=== PATIENT | male | born 1970 | race Caucasian/White ===

== ENCOUNTER 2016-10-22 06:46 | Observation (INO) | payer OTHER ==
--- NOTE | 2016-10-21 14:21 | PDHPUP ---
History & Physical Update H&P update statement: This history and physical update is based on an assessment of the patient which was completed after admission or registration (within 24 hours), but prior to the surgery/procedure.
[~2016-10-22 06:46] MED LIST: DEXAMETHASONE 10 MG/ML VIAL IVP ONE; ceFAZolin 2 GM/DEXTROSE 100 ML IV ONE
[2016-10-22] MEDS ORDERED: BUPIVACAINE 0.25% 30 ML SDV ONE (06:56)
[2016-10-22] MEDS ORDERED: ceFAZolin 2 GM/DEXTROSE 100 ML IV ONE (07:00)
[2016-10-22] MEDS ORDERED: DEXAMETHASONE 10 MG/ML VIAL IVP ONE (07:00)
[2016-10-22] MEDS ORDERED: PROPOFOL 200 MG/20 ML VIAL ONE ×2 (07:09→08:44)
[2016-10-22] MEDS ORDERED: ROCURONIUM 50 MG/5 ML VIAL ONE ×2 (07:09→08:45)
[2016-10-22] MEDS ORDERED: fentaNYL 100 MCG/2 ML INJ ONE ×3 (07:09→08:44)
[2016-10-22] MEDS ORDERED: SUCCINYLCHOLINE CHLORIDE*ANESTHESIA ONLY*200 MG/10 ML SYR IVP ONE (07:09)
[2016-10-22] MEDS ORDERED: LIDOCAINE 2% 5 ML SDV ONE (07:09)
--- NOTE | 2016-10-22 07:14 | PDANEPAE ---
ANE History of Present Illness Patient presents for UPPP ANE Past Medical History - Cardiovascular History Hx Hypertension: Yes Hx Arrhythmias: No Hx Chest Pain: No Hx Coronary Artery / Peripheral Vascular Disease: No Hx CHF / Valvular Disease: No Hx Palpitations: No - Pulmonary History Hx COPD: No Hx Asthma/Reactive Airway Disease: No Hx Recent Upper Respiratory Infection: No Hx Oxygen in Use at Home: No Hx Sleep Apnea: Yes Sleep Apnea Screening Result - Last Documented: Positive - Neurologic History Hx Cerebrovascular Accident: No Hx Seizures: No Hx Dementia: No - Endocrine History Hx Diabetes: No - Renal History Hx Renal Disorders: No - Liver History Hx Hepatic Disorders: No - Neurological & Psychiatric Hx Hx Neurological and Psychiatric Disorders: No - Cancer History Hx Cancer: No - Congenital Disorder History Hx Congenital Disorders: No - GI History GERD: moderate Hx Gastrointestinal Disorders: No Gastrointestinal History Comment: POLYP REMOVED - Other Health History Other Health History: NONE - Chronic Pain History Chronic Pain: Yes (LOWER BACK) - Surgical History Prior Surgeries: RIGHT TIBIA FX ANE Review of Systems Review of Systems: - Exercise capacity Exercise capacity: >=4 METS METS (RN): 4 METS ANE Patient History - Allergies Allergies/Adverse Reactions: No Allergies [NKDA] Allergy (Mild, Verified 02/09/09 18:27) - Home Medications Home medications: home medication list seen and reviewed Home Medications: Acetaminophen [Tylenol 325mg (*)] 325 mg PO DAILY PRN 10/15/16 [Last Taken 10/15] Ibuprofen [Motrin (*)] 200 mg PO DAILY PRN 10/15/16 [Last Taken 10/15/16] - Anes Hx Anes Hx: no prior problems - Smoking Hx Smoking Status: Never smoked - Family Anes Hx Family Hx Anesthesia Complications: NONE ANE Labs/Vital Signs - Vital Signs Height: 185.42 cm Weight: 230 kg ANE Physical Exam - Airway Neck exam: FROM Mallampati Score: Class 3 Mouth exam: small mouth opening - Pulmonary Pulmonary: no respiratory distress - Cardiovascular Cardiovascular: regular rate and rhythym - ASA Status ASA Status: II, III ANE Anesthesia Plan Anesthesia Plan: general endotracheal anesthesia (rba discussed)
[2016-10-22] MEDS ORDERED: LIDOCAINE 1% 2 ML INJ ONE (07:22)
[2016-10-22] MEDS ORDERED: LIDOCAINE 1% 2 ML INJ ID PRN (07:23)
[2016-10-22] MEDS ORDERED: LR 1,000 ML IV ONE (07:23)
[2016-10-22] MEDS ORDERED: ATROPINE SULFATE 1 MG/ML VIAL ONE (07:54)
[2016-10-22] MEDS ORDERED: NALOXONE HCL 0.4 MG/ML INJ IVP PRN ×2 (07:57)
[2016-10-22] MEDS ORDERED: LABETALOL HCL 50 MG/10 ML SYR IVP PRN (07:57)
[2016-10-22] MEDS ORDERED: ONDANSETRON 4 MG/2 ML VIAL IVP PRN ×2 (07:57→09:10)
[2016-10-22] MEDS ORDERED: fentaNYL 100 MCG/2 ML INJ IVP PRN (07:57)
[2016-10-22] MEDS ORDERED: LR 500 ML IV PRN (07:57)
[2016-10-22] MEDS ORDERED: DEXAMETHASONE 4 MG/ML VIAL ONE (08:35)
[2016-10-22] MEDS ORDERED: ONDANSETRON 4 MG/2 ML VIAL ONE (08:35)
[2016-10-22] MEDS ORDERED: SUGAMMADEX SODIUM 200 MG/2 ML VIAL IVP ONE (08:36)
--- NOTE | 2016-10-22 09:10 | POSTOPPROG ---
Post Op Note Date of Operation: 10/22/16 Surgeon: Prakash Redd Pre-op Diagnosis: NIK, tonsil hyperplasia, snoring Post-op Diagnosis: same Indication: Severe sleep apnea, snoring, large tonsils Procedure: Tonsillectomy and UPPP Findings: Large tonsils and very large uvula, significant redundant pharyngeal tissue Inf/Abcess present in the surg proc area at time of surgery?: No Depth: Deep Incisional (Fascial) EBL: Minimal Complications: none Specimen(s): tonsils and uvula
--- NOTE | 2016-10-22 09:19 | POSTANESTH ---
Post Anesthetic Evaluation Cardiovascular Status: Normal, Stable Respiratory Status: Normal, Stable Level of Consciousness/Mental Status: Can Participate in Eval Pain Control: Adequate, Prn Tx Ordered Nausea/Vomiting Control: Adequate, Prn Tx Ordered Complications Possibly Related to Anesthesia: None Noted
--- NOTE | 2016-10-22 10:04 | GOP ---
[f rep st] OPERATIVE REPORT DATE OF OPERATION: 10/22/2016 SURGEON: Prakash Redd MD ANESTHESIA: General. PREOPERATIVE DIAGNOSIS: 1. Obstructive sleep apnea syndrome. 2. Tonsil hyperplasia. 3. Snoring. POSTOPERATIVE DIAGNOSIS: 1. Obstructive sleep apnea syndrome. 2. Tonsil hyperplasia. 3. Snoring. PROCEDURE PERFORMED: 1. Tonsillectomy. 2. Uvulopalatopharyngoplasty. FINDINGS: Large tonsils, long uvula and palate. SPECIMENS: Tonsils and palate tissue. ESTIMATED BLOOD LOSS: Less than 50 mL. INDICATIONS: The patient is a 46-year-old male with severe obstructive sleep apnea syndrome. He has been unable to tolerate CPAP. He has large tonsils and a very long palate and large uvula and we elected, after long discussion, to perform surgery in hopes of improving his sleep apnea and possibly allowing him to tolerate CPAP. More recently, his symptoms have gotten worse with the patient sleepwalking and feeling like he has trouble staying awake while driving. DESCRIPTION OF PROCEDURE: Patient was taken to the OR and positively identified , placed on monitors and general anesthesia was induced. The table was then turned 90 degrees. He was placed in supine position with a shoulder roll and head drape. A Markus mouth gag was used to visualize the oropharynx. He was placed in suspension. The peritonsillar tissues were then infiltrated on either side with 3 cc of 0.25% Marcaine with 1:200,000 epinephrine. I grasped the large uvula and pulled it anteriorly to see the crease where the uvula intersected with the border of the soft palate musculature and this was marked as a point for the UPPP. The tonsils were then removed with a combination of the Coblation wand and the electrocautery. Following tonsillectomy, the gag was released for several minutes and reopened, there was a little bit of oozing from the left inferior tonsillar fossa along the edge of the base of tongue, which was controlled with electrocautery. At this point, the uvula was again pulled forward. I then used the monopolar electrocautery to excise the uvula and the leading edge of the redundant anterior tonsillar pillar tissue bilaterally, preserving the posterior uvula mucosa to ease closure. I noted that the posterior tonsillar pillars were medially connected to the base of the uvula causing significant narrowing of the opening into the nasopharynx. I made a small cut in this muscle line bilaterally and this allowed me to then sew this muscle laterally, opening up the nasopharynx from the oral cavity. I then used chromic in interrupted fashion to reapproximate the mucosa on the palatal and nasal surface of the soft palate. I had preserved some of the mucosa on the posterior aspect of the uvula and brought that forward to sew to the midline. At this point, the gag was released for several minutes and reopened. There were no signs of any further bleeding. A further 3 cc of local anesthetic was infiltrated into the surgical area. The patient was then turned back over to Anesthesia, having tolerated the procedure well. COMPLICATIONS: None. /[id number]/MODL MTDD
[2016-10-22] MEDS: HYDROCOD/APAP 7.5/325 IN 15ML UDCUP PO PRN ×3 (10:32→21:15)
[2016-10-22] MEDS: D5W LR 1,000 ML IV SCH (11:18)
[2016-10-22] MEDS: ceFAZolin 2 GM/DEXTROSE 100 ML IV SCH ×2 (13:38→21:15)
[2016-10-22] MEDS ORDERED: LISINOPRIL 10 MG TAB PO ONE (15:37)
--- NOTE | 2016-10-22 16:26 | GCON ---
[f rep st] CONSULTATION DATE OF CONSULTATION: 10/22/2016 REASON FOR CONSULTATION: I was asked by Dr. Redd to see the patient in regard to his hypertensi on postoperatively. HISTORY OF PRESENT ILLNESS: This is a 46-year-old man who has severe sleep apnea, is now status post tonsillectomy and uvulopalatoplasty who has had persistently high blood pressures postoperatively. There were no complications with the procedure itself. He has had readings as high as 160/117 while he was sleeping. This is after being medicated and was not complaining of any significant pain. He tells me he has a history of borderline hypertension previously, at one point had been prescribed a m edication by his primary care physician. He checks his blood pressures at home routinely and usually sees around 140/90 at home. He does not have any significant personal or family history of vascular disease. PAST MEDICAL/SURGICAL HISTORY: 1. Obstructive sleep apnea. 2. Tibia fracture status post open reduction and internal fixation. MEDICATIONS: Please see medication reconciliation. ALLERGIES: No known drug allergies. SOCIAL HISTORY: He is accompanied by his . He occasionally drinks alcohol and does not smoke. FAMILY HISTORY: Significant family history of colon cancer. He gets colonoscopies every 2-3 years. REVIEW OF SYSTEMS: A 10-point review of systems is conducted and is negative except per HPI. PHYSICAL EXAMINATION: VITAL SIGNS: Last blood pressure is 139/93, heart rate 88, respiration rate 1 8, saturating 95% on 2 L, temperature 36.3. GENERAL: The patient is a pleasant man who appears some what uncomfortable sitting in bed. HEENT: Shows him to be normocephalic, atraumatic. CARDIOVASCULA R: Regular rate and rhythm. There are no murmurs, rubs, or gallops. PULMONARY: Lungs clear to aus cultation bilaterally. ABDOMEN: Soft, nontender, nondistended. SKIN: Shows no rash. : No Fole y. NEUROLOGIC: Exam shows him to be alert and oriented x3. He is moving all extremities. PSYCHIAT DARCY: Exam shows normal mood and affect. LABORATORY: I reviewed his previous labs. He has had a white count as high as 9.6 in 2011. I reviewed his operative note which shows an uncomplicated tonsillectomy and uvulopalatoplasty. I discussed this case with MICHAEL Wilson for Dr. Redd. IMPRESSION AND PLAN: A 46-year-old man status post tonsillectomy and uvulopalatoplasty for sleep vp genetic ea with hypertension. 1. Hypertension: I suspect there is probably a component of essential hypertension here. Difficult to assess this while he is an inpatient. I think it is reasonable to give him a small dose of lisin opril today to lower his diastolic blood pressures and see how he responds. I will give him a dose o f 10 mg and follow. I have not scheduled this for tomorrow, would like to see what his blood pressur e is tomorrow before scheduling this. If it is still elevated, I think he should be given a prescrip tion for lisinopril to follow up with his primary care physician, Dr. Serna. We will check a set of electrolytes and kidney function today. He is also complaining of some leg cramps. 2. Obstructive sleep apnea: This was severe. Hopefully it will be helped by this procedure. 3. Leg cramps: Check electrolytes as above. Thank you for involving Hospital Medicine in the care of this patient. We will follow with you. /[id number]/MODL
[2016-10-22 17:31] LABS: ANION GAP 12 mEq/L (8-16); CALCIUM 9.1 mg/dL (8.5-10.4); CARBON DIOXIDE 21 mEq/l (22-31); CHLORIDE 105 mEq/L (97-110); GLOMERULAR FILTRATION RATE > 60; GLUCOSE 120 mg/dL (70-100); POTASSIUM 4.5 mEq/L (3.5-5.2); SODIUM 138 mEq/L (134-144)
--- NOTE | 2016-10-22 19:22 | SOAPPROG ---
SOAP Progress Note Assessment/Plan: Assessment: Pt eating remarkably well and pain under adequate control. Appreciate the help of the hospitalist service. His HTN is controlled with the 10mg lisinopril ordered by the hospitalist. Plan: Anticipate discharge tomorrow. 10/22/16 19:19 Subjective: Pt eating pasta. No complaints. Objective: Vital Signs Temp Pulse Resp BP Pulse Ox 36.3 C 88 18 139/93 H 95 10/22/16 14:57 10/22/16 14:57 10/22/16 14:57 10/22/16 14:57 10/22/16 14:57 Laboratory Results 10/22/16 16:36 10/21/16 10/22/16 10/23/16 05:59 05:59 05:59 Intake Total 700 Output Total 20 Balance 680 Pt eating and appears comfortable. No bleeding. - Pending Discharge Pending Discharge Within 24 Hours: Yes Pending Discharge Date: 10/23/16 Pending Discharge Time: 11:00 ICD10 Worksheet Patient Problems: Problems Problem Status Onset Sleep apnea syndrome Acute Snoring Acute Tonsillar hypertrophy Acute - ICD10 Problem Qualifiers (1) Sleep apnea syndrome Qualifiers: Sleep apnea type: obstructive Qualified Code(s): G47.33 - Obstructive sleep apnea (adult) (pediatric) (2) Tonsillar hypertrophy (3) Snoring
[2016-10-23] MEDS: HYDROCOD/APAP 7.5/325 IN 15ML UDCUP PO PRN ×3 (01:17→09:24)
[2016-10-23] MEDS: D5W LR 1,000 ML IV SCH (01:17)
[2016-10-23] MEDS: ceFAZolin 2 GM/DEXTROSE 100 ML IV SCH (05:27)
[2016-10-23 07:10] VITALS: BP 125/73; PULSE 63; RESP 16; TEMP 98.1; O2SAT 97
--- NOTE | 2016-10-23 12:23 | GDS ---
[f rep st] DISCHARGE SUMMARY HISTORY OF PRESENT ILLNESS: This is a 46-year-old male with a history of recently diagnosed obstruct krunal sleep apnea. The patient sleeps poorly, and has been told that he snores as well. The patient p resented to the hospital on October 22, 2016 for a tonsillectomy and uvulopalatopharyngoplasty. HOSPITAL COURSE: Patient underwent surgery on 10/22/2016, and was subsequently admitted to the [facility] for observation overnight. Patient was discharged home on 10/23/2016 in stable condition. DISCHARGE CONDITION: Stable. DISCHARGE INSTRUCTIONS: Patient was instructed to follow up with our office in 2 weeks for further e valuation. /[id number]/MODL
--- NOTE | 2016-10-23 12:58 | HOSPPROG ---
Hospitalist Progress Note Assessment/Plan: 46y male post op HTN. First encounter, chart reviewed. #HTN controlled on lisinopril #Pain stable #Dispo per ENT, home Subjective: Feeling ok. Ready to go. Objective: Vital Signs Temp Pulse Resp BP Pulse Ox 36.7 C 63 16 125/73 H 97 10/23/16 07:09 10/23/16 07:09 10/23/16 07:09 10/23/16 07:09 10/23/16 07:09 Laboratory Results 10/22/16 16:36 10/22/16 10/23/16 10/24/16 05:59 05:59 05:59 Intake Total 2402 Output Total 20 Balance 2382 - Physical Exam Constitutional: no apparent distress, appears nourished Eyes: PERRL, anicteric sclera Ears, Nose, Mouth, Throat: moist mucous membranes, hearing normal Cardiovascular: No JVD, No edema Respiratory: no respiratory distress, reduced air movement Gastrointestinal: No ascites, No distension Skin: warm, normal color Musculoskeletal: normal joint ROM, no joint effusions Neurologic: AAOx3 Psychiatric: not anxious, not encephalopathic ICD10 Worksheet Patient Problems: Problems Problem Status Onset Sleep apnea syndrome Acute Tonsillar hypertrophy Acute Snoring Acute
--- NOTE | 2016-10-25 17:06 | ASDISCHSUM ---
Discharge Information Plan Status:Home with No Needs Medically Cleared to Leave:10/23/2016 Discharge Date:10/23/2016 10:19 AM CM D/C Disposition:Home, Routine, Self-Care ADT D/C Disposition:Home, Routine, Self-Care Projected Discharge Date:10/23/2016 12:00 AM Transportation at D/C: Discharge Delay Reason: Follow-Up Date:10/23/2016 12:00 AM Discharge Slot: Final Diagnosis: Placement Information Patient Contact Information Contact Name:DEISY Relationship: Address:[address] [place] City:[place] Alternate Phone: State/Zip Code:[place] [address] Email: Financial Information Financial Class:HMO and PPO Plans Primary Plan Desc:[employer] Primary Plan Number:[id number] Secondary Plan Desc: Secondary Plan Number: Assessment Information Intervention Information
== END 2016-10-23 10:19 | disposition home or self-care (01) ==
LOC: F3E 06:46
PROVIDERS: ADMIT Otolaryngology; ATTEND Otolaryngology
PROC: 0CS30ZZ Reposition Soft Palate, Open Approach (ICD-10-PCS; principal; 2016-10-22 07:15)
PROC: 0CS Mouth and Throat, Reposition (ICD-10-PCS; principal; 2016-10-22 07:15)
PROC: 0CTPXZZ Resection of Tonsils, External Approach (ICD-10-PCS; principal; 2016-10-22 07:15)
DX: J35.1 Hypertrophy of tonsils (principal); G47.33 Obstructive sleep apnea (adult) (pediatric); I97.3 Postprocedural hypertension; R06.83 Snoring
CPT/HCPCS: 42145; G0378; J0171; J0330; J0461; J0690; J1100; J2405; J2704; J3010